=== PATIENT | male | born 1985 | race Caucasian/White ===

== ENCOUNTER 2018-01-18 14:17 | Emergency (ER) | payer MEDICAID ==
[~2018-01-18] VITALS: Ht 610.5 cm; Wt 113.6 kg
[~2018-01-18 14:17] MED LIST: NO MEDICATIONS; ONDA8TAB9 PO
[2018-01-18] MEDS ORDERED: ondansetron/PF 4mg/2ml inj IV ONE ×2 (14:35→16:10)
[2018-01-18] MEDS ORDERED: ketorolac trometh. 30mg/ml inj. IV ONE (14:35)
[2018-01-18] MEDS ORDERED: normal saline 1000ML IV soln IVB ONE (14:35)
[2018-01-18] MEDS ORDERED: morphine 4 MG/ML inj SYRINge IV PRN (14:35)
[2018-01-18 14:42] LABS: BASOPHILS % (AUTO) 0.4 % (0-1); EOSINOPHILS # (AUTO) 0.2 X10'3 (0-0.9); EOSINOPHILS % (AUTO) 2.1 % (0-6); HEMATOCRIT 41.5 % (42.0-52.0); HEMOGLOBIN 14.4 g/dl (14.0-17.9); LYMPHOCYTES # (AUTO) 1.6 X10'3 (1.1-4.8); MEAN CORPUSCULAR HEMOGLOBIN 31.7 PG (27.0-31.0); MEAN CORPUSCULAR HGB CONC 34.8 % (33.0-36.5); MEAN PLATELET VOLUME 11.1 FL (7.4-10.4); MONOCYTES # (AUTO) 0.6 X10'3 (0-0.9); MONOCYTES % (AUTO) 5.5 % (2-12); NEUTROPHILS # (AUTO) 8.7 X10'3 (1.8-7.7); PLATELET COUNT 230 X10'3 (140-440); RED BLOOD COUNT 4.56 X10'6 (4.70-6.10); RED CELL DISTRIBUTION WIDTH 12.9 % (11.5-14.5); WHITE BLOOD COUNT 11.1 X10'3 (4.5-11.0)
[2018-01-18 14:50] LABS: PROTHROMBIN TIME 10.6 SECONDS (9.0-12.0)
[2018-01-18 14:56] LABS: ALANINE AMINOTRANSFERASE 48 U/L (12-78); ALBUMIN/GLOBULIN RATIO 1.3 (1.1-1.5); ALKALINE PHOSPHATASE 59 IU/L (46-116); ANION GAP 7 (8-16); ASPARTATE AMINO TRANSFERASE 20 U/L (10-37); BILIRUBIN,TOTAL 0.4 MG/DL (0.1-1.0); BLOOD UREA NITROGEN 16 MG/DL (7-18); BUN/CREATININE RATIO 14.3 (5.4-32.0); CALCIUM 8.8 MG/DL (8.5-10.1); CHLORIDE 104 MMOL/L (99-107); CREATININE 1.12 MG/DL (0.60-1.10); GLUCOSE 111 MG/DL (70-104); POTASSIUM 3.9 MMOL/L (3.5-5.1); SODIUM 138 MMOL/L (135-145); eGFR 76 ML/MIN
[2018-01-18 16:01] LABS: LARGE PLATELETS MODERATE; PLATELET ESTIMATE NORMAL
[2018-01-18] MEDS ORDERED: ONDA4TAB9 SL (16:03)
[2018-01-18] MEDS ORDERED: KETO10TA2 PO (16:03)
[2018-01-18] MEDS ORDERED: HYDR-569 PO (16:03)
[2018-01-18] MEDS ORDERED: FLO0.4C PO (16:03)
[2018-01-18] MEDS ORDERED: fentaNYL/PF 50MCG/1 ML 2ML syringe IV ONE (16:10)
[2018-01-18] MEDS ORDERED: normal saline 1000ml 1,000 ML IV ONE (16:35)
[2018-01-18 17:58] VITALS: BP 128/78
== END 2018-01-18 17:59 | disposition home or self-care (01) ==
LOC: ER 14:17
DX: N20.0 Calculus of kidney (principal); R10.31 Right lower quadrant pain; Z79.899 Other long term (current) drug therapy
CPT/HCPCS: 36415; 74176; 80053; 85025; 85610; 93005; 96361; 96374; 96375; 96376; 99285; J1885; J2405; J3010; J7030

== ENCOUNTER 2020-06-11 12:05 | Emergency (ER) | payer MEDICAID ==
[~2020-06-11] VITALS: Ht 180.3 cm; Wt 105.0 kg
[~2020-06-11 12:05] MED LIST changes: +HYDR-4383 PO; +KETO10TA2 PO
[2020-06-11 12:15] VITALS: BP 130/82
[2020-06-11 12:56] LABS: BASOPHILS # (AUTO) 0.1 X10'3 (0-0.2); BASOPHILS % (AUTO) 0.5 % (0-1); EOSINOPHILS # (AUTO) 0.2 X10'3 (0-0.9); HEMATOCRIT 43.2 % (42.0-52.0); HEMOGLOBIN 14.4 g/dl (14.0-17.9); LYMPHOCYTES # (AUTO) 1.4 X10'3 (1.1-4.8); LYMPHOCYTES % (AUTO) 8.5 % (21-51); MEAN CORPUSCULAR HEMOGLOBIN 31.3 PG (27.0-31.0); MEAN CORPUSCULAR HGB CONC 33.4 g/dL (33.0-36.5); MEAN CORPUSCULAR VOLUME 93.9 FL (78-98); MEAN PLATELET VOLUME 10.7 FL (7.4-10.4); MONOCYTES # (AUTO) 1.8 X10'3 (0-0.9); MONOCYTES % (AUTO) 11.6 % (2-12); NEUTROPHILS # (AUTO) 12.5 X10'3 (1.8-7.7); NEUTROPHILS % (AUTO) 78.4 % (42-75); PLATELET COUNT 260 X10'3 (140-440); RED CELL DISTRIBUTION WIDTH 12.6 % (11.5-14.5); WHITE BLOOD COUNT 15.9 X10'3 (4.5-11.0)
[2020-06-11 13:18] LABS: ALANINE AMINOTRANSFERASE 62 U/L (12-78); ALBUMIN 3.9 G/DL (3.4-5.0); ALKALINE PHOSPHATASE 88 IU/L (46-116); ANION GAP 8 (8-16); ASPARTATE AMINO TRANSFERASE 37 U/L (10-37); BILIRUBIN,TOTAL 0.9 MG/DL (0.1-1.0); BLOOD UREA NITROGEN 13 MG/DL (7-18); BUN/CREATININE RATIO 13.8 (5.4-32.0); CALCIUM 9.5 MG/DL (8.5-10.1); CHLORIDE 102 MMOL/L (99-107); CREATININE 0.94 MG/DL (0.60-1.10); GLUCOSE 96 MG/DL (70-104); LIPASE 177 U/L (73-393); POTASSIUM 3.8 MMOL/L (3.5-5.1); SODIUM 139 MMOL/L (135-145); TOTAL CARBON DIOXIDE 28.8 MMOL/L (24-32); eGFR > 90 ML/MIN
[2020-06-11 13:41] LABS: LARGE PLATELETS FEW; PLATELET ESTIMATE NORMAL
[2020-06-11 15:36] LABS: CLARITY,URINE CLOUDY (Clear); COLOR,URINE YELLOW (Yellow); GLUCOSE, URINE NEGATIVE (Neg); KETONES,URINE NEGATIVE (Neg); LEUKOCYTE ESTERASE ,URINE NEGATIVE (Neg); NITRITES, URINE NEGATIVE (Neg); OCCULT BLOOD,URINE NEGATIVE (Neg); PROTEIN,URINE 30 mg/dl (Neg)
[2020-06-11 15:43] LABS: UA COLLECTION TYPE URINAL
[2020-06-11 15:44] LABS: MUCUS STRANDS MANY /LPF (Neg)
[2020-06-11 15:45] LABS: SPERM FEW /HPF (NEGATIVE); SQUAMOUS EPITHELIAL CELL,UR FEW /LPF (FEW)
[2020-06-11 15:46] LABS: BACTERIA,URINE FEW /HPF (Neg); RBC,URINE 0-2 /HPF (0-2); WBC,URINE 0-4 /HPF (0-4)
[2020-06-11] MEDS ORDERED: ONDA4TAB6 PO (15:46)
[2020-06-11] MEDS ORDERED: AMOX-422 PO (15:46)
[2020-06-11] MEDS ORDERED: HYDR-3965 PO (15:46)
[2020-06-11] MEDS ORDERED: ondansetron 4mg rapidly disintigrating tab PO ONE (15:50)
== END 2020-06-11 16:38 | disposition home or self-care (01) ==
LOC: ER 12:05
DX: R10.32 Left lower quadrant pain (principal); K57.92 Diverticulitis of intestine, part unspecified, without perforation or abscess without bleeding; Z87.442 Personal history of urinary calculi; Z79.2 Long term (current) use of antibiotics; Z79.899 Other long term (current) drug therapy
CPT/HCPCS: 36415; 80053; 81001; 83690; 85008; 85025; 99283

== ENCOUNTER 2025-03-28 17:06 | Emergency (ER) | payer MEDICAID ==
[~2025-03-28] VITALS: Ht 180.3 cm; Wt 114.8 kg
[~2025-03-28 17:06] MED LIST changes: +ONDA4TAB6 PO
[2025-03-28 17:39] LABS: MEAN PLATELET VOLUME 10.3 FL (7.4-10.4); RED CELL DISTRIBUTION WIDTH 13.7 % (11.5-14.5)
--- NOTE | 2025-03-28 18:05 | Physician Documentation ---
History of Present Illness Chief Complaint: Abdominal Pain Stated Complaint: ABDOMINAL PAIN Primary Medical Doctor: [facility] HPI This is a 39-year-old male with a history of diverticulitis who presents with two days of increased lower abdominal pain, patient reports pain is suprapubic and worse with bowel movements. Patient reports no fevers or blood in his stool. Patient reports no other acute symptoms or concerns Medication Reconciliation Allergies: Coded Allergies: No Known Allergies (Unverified , 03/28/25) Scheduled Amox Tr/Potassium Clavulanate 875/125 MG (Augmentin 875/125 MG), 1 TAB PO BID Hydrocodone/Acetaminophen (Hendricks 5-325 Tablet), 1 TAB PO TID PRN Ketorolac Tromethamine (Ketorolac Tromethamine), 1 TAB PO Q8H Ondansetron Hcl (Zofran), 1 TAB PO Q6H Scheduled PRN Hydrocodone Bit/Acetaminophen 5/325 MG (Hendricks 5/325 MG), 1-2 TAB PO Q4-6 hours PRN for pain Ondansetron (Zofran Odt), 8 MG PO QID PRN for nausea/vomiting Miscellaneous Medications [No Medications], (Reported) Past Medical History Past Medical History: Diverticulitis, Diverticulosis Past Surgical History: no surgical history Drug Use: none Lives with: Spouse Lives In: Home Review of Systems ROS As stated above in the HPI, otherwise all systems are reviewed and negative. Physical Exam Vital Signs: Temperature: 97.8, Heart Rate: 90, Respiratory Rate: 18, BP: 125/69, Pulse Oximetry: 98, Weight: 114.800 Oxygen Flow Rate: 0 Physical Exam VITALS: Reviewed and as above. GENERAL: Alert, nontoxic appearing, no apparent distress. HEENT: RESPIRATORY: No increased work of breathing, no respiratory distress, speaking in full clear sentences CHEST: CV: BACK: GI: MUSCULOSKELETAL: SKIN: NEURO: PSYCH: Progress Results/Orders Results/Orders Orders - COLEEN CARPENTER Urinalysis, Cult If Indicated (03/28/25 17:19) BMP (03/28/25 17:19) Lipase (03/28/25 17:19) CMP (03/28/25 17:19) Completed Orders - COLEEN CARPENTER Cbc/Diff (03/28/25 17:19) Vital Signs 03/28/25 17:14 Temp 97.8 Pulse 90 Resp 18 B/P (MAP) 125/69 Pulse Ox 98 O2 Flow Rate 0 Laboratory Tests Test 03/28/25 17:30 White Blood Count 14.7 H Red Blood Count 5.21 Hemoglobin 16.0 Hematocrit 47.7 Mean Corpuscular Volume 91.5 Mean Corpuscular Hemoglobin 30.7 Mean Corpuscular Hemoglobin Concent 33.6 Red Cell Distribution Width 13.7 Platelet Count 339 Mean Platelet Volume 10.3 Neutrophils (%) (Auto) 77.4 H Lymphocytes (%) (Auto) 13.0 L Monocytes (%) (Auto) 7.3 Eosinophils (%) (Auto) 1.9 Basophils (%) (Auto) 0.4 Neutrophils # (Auto) 11.3 H Lymphocytes # (Auto) 1.9 Monocytes # (Auto) 1.1 H Eosinophils # (Auto) 0.3 Basophils # (Auto) 0.1 CBC Comment Chemistry Comments Medical Decision Making Additional information obtaine: old records Findings MSE performed in triage and patient returned to ED lobby by nursing staff to await available ED room. Examination history warrants CT imaging to evaluate for abscess and a perforation. CT imaging reassuring. Patient responded well to pain medicine in the form of morphine and single dose IV Unasyn. He will be discharged with outpatient management to include Augmentin b.i.d. for 10 days an d Hendricks for breakthrough pain. Labs are reassuring which is mild leukocytosis. He is able to tolerate fluids well, normotensive afebrile discharged with the pain while managed. Strict instructions to return if symptoms worsen he needs to follow up with the primary care for elective surgical evaluation. Differential Dx:Considerations: Appendicitis, Diverticular disease, Inflammatory BD Departure Disposition: HOME / SELF CARE / HOMELESS Impression: Primary Impression: Diverticulitis Condition: Improved Discharge Instructions: Diverticulitis, [id number] Additional Instructions: Your CT imaging is consistent with moderate diverticulitis. Please begin antibiotic as directed and taking pain medicine also as directed. Return to the emergency department if her symptoms worsen to include fever or increased pain. Please make follow up appointment with your primary care physician for consideration of surgical evaluation. Thank you for visiting emergency department [facility]. Referrals: NO PRIMARY CARE PROVIDER (PCP) Prescriptions Hydrocodone Bit/Acetaminophen 5/325 MG (Hendricks 5/325 MG) 5 Mg/325 Mg Tablet 1-2 TAB PO Q4-6 hours PRN for pain, #16 TAB Prov: PREMA CAO PAC 03/29/25 Hydrocodone Bit/Acetaminophen 5/325 MG (Hendricks 5/325 MG) 5 Mg/325 Mg Tablet 1-2 TAB PO Q4-6 hours PRN for pain, #16 TAB Prov: PREMA CAO PAC 03/28/25 Amox Tr/Potassium Clavulanate 875/125 MG (Augmentin 875/125 MG) 875 Mg-125 Mg Tablet 1 TAB PO BID, #20 TAB Prov: PREMA CAO PAC 03/28/25 Education Educated: Patient Educated regarding: diagnosis, treatment, prognosis, need for follow up Signature Scribe Signature: . Attestation: . COLEEN CARPENTERP Mar 28, 2025 18:05 PREMA CAO Mar 28, 2025 20:51
[2025-03-28 18:10] LABS: CREATININE 1.19 MG/DL (0.60-1.10); TOTAL CARBON DIOXIDE 30.1 MMOL/L (24-32); eCRCL 88 ML/MIN; eGFR 68 ML/MIN
[2025-03-28] MEDS: normal saline 1000ml 1,000 ML IV ONE (19:17)
[2025-03-28] MEDS ORDERED: iohexol 300mg/ml 100ml inj. ONE (19:20)
[2025-03-28] MEDS: morphine 4 MG/ML inj SYRINge IV ONE (19:46)
--- NOTE | 2025-03-28 19:49 | RADIOLOGY REPORT ---
CLINICAL HISTORY: LLQ TECHNIQUE: CT of the abdomen and pelvis was performed without IV contrast. This exam was performed according to our departmental dose optimization program. Up-to-date CT equipment and radiation dose reduction techniques are utilized as appropriate. CTDI 33 DLP 1665 COMPARISON: None FINDINGS: Abdomen/Pelvis: The spleen, pancreas, adrenal glands, gallbladder, liver, bladder, and prostate gland are unremarkable. There is a right renal cysts and subcentimeter hypodense lesions in both kidneys which are too small to adequately characterize. There is colonic diverticulosis, moderate to severe at the sigmoid segment. There is severe sigmoid colon wall thickening and inflammation. There is trace adjacent ill-defined fluid. The abdominal aorta is normal in course and caliber. There are no significant atherosclerotic calcifications. There is no free intraperitoneal air. There is no enlarged abdominal pelvic lymph node. There is a small to moderate fat containing umbilical hernia. Other: The imaged lower thorax is unremarkable. No acute osseous abnormality is evident. Impression: Acute sigmoid colon diverticulitis with significant wall thickening and inflammation. Trace adjacent ill-defined fluid.
[2025-03-28] MEDS: ampicillin/sulbac 3gm/NS 100ml 100 ML IV SCH (20:04)
[2025-03-28 20:24] LABS: LEUKOCYTE ESTERASE ,URINE NEGATIVE (Neg); NITRITES, URINE NEGATIVE (Neg); OCCULT BLOOD,URINE NEGATIVE (Neg)
[2025-03-28 20:31] LABS: UA COLLECTION TYPE NON-SPECIFIED
[2025-03-28] MEDS ORDERED: AMOX-580 PO (20:49)
[2025-03-28] MEDS ORDERED: HYDR-3965 PO (20:49)
[2025-03-28 21:17] VITALS: BP 115/80; PULSE 65; TEMP 97.8; O2SAT 98
[2025-03-28 21:19] VITALS: RESP 16
== END 2025-03-28 21:35 | disposition home or self-care (01) ==
LOC: ER 17:06
DX: K57.32 Diverticulitis of large intestine without perforation or abscess without bleeding (principal)
CPT/HCPCS: 36415; 74177; 80053; 81003; 83690; 85025; 96361; 96365; 96375; 99285; J0295; J2270; J7030; Q9967